=== PATIENT | male | born 1990 | race Caucasian/White ===

== ENCOUNTER 2018-11-21 03:54 | Emergency (ER) | payer SELFPAY ==
[~2018-11-21] VITALS: Ht 193 cm; Wt 72.7 kg
[2018-11-21 03:58] VITALS: TEMP 97.8
[2018-11-21 05:08] LABS: ALANINE AMINOTRANSFERASE 23 U/L (21-72); ALBUMIN 4.4 gm/dL (3.5-5.0); ALKALINE PHOSPHATASE 62 U/L (50-136); ANION GAP 11 mmol/L (7-16); AST,SGOT 27 U/L (15-37); BILIRUBIN,TOTAL 1.1 mg/dL (0.0-1.0); BLOOD UREA NITROGEN 14 mg/dL (9-20); CALCIUM 9.6 mg/dL (8.4-10.2); CARBON DIOXIDE 25 mmol/L (22-30); CHLORIDE 103 mmol/L (98-107); CREATININE, serum 0.66 (0.66-1.25); GLUCOSE 94 mg/dL (74-106); LIPASE 61 U/L (23-300); POTASSIUM 4.2 mmol/L (3.4-5.0); SODIUM 140 mmol/L (137-145); TOTAL PROTEIN 7.5 gm/dL (6.4-8.2)
[2018-11-21 05:21] LABS: TROPONIN-I < 0.012 ng/mL (0.000-0.035)
[2018-11-21 05:31] LABS: BASO % 0.5 % (0.0-2.0); EOS # 0.1 (0.0-0.7); EOS % 0.9 % (0-4.0); GRAN # 6.1 (1.4-6.5); GRAN % 71.4 % (42.2-75.2); HEMATOCRIT 40.6 % (42.0-52.0); HEMOGLOBIN 14.1 g/dl (13.5-18.0); LYMPH # 1.7 (1.2-3.4); LYMPH % 19.9 % (20.0-51.0); MEAN CELL VOLUME 88 fl (80.0-100.0); MEAN CORPUSCULAR HEMOGLOBIN 30 pg (27.0-31.0); MEAN CORPUSCULAR HGB CONC 35 g/dl (33.0-37.0); MEAN PLATELET VOLUME 8.3 fl (7.4-10.4); MONO # 0.6 (0.1-0.6); MONO % 7.1 % (1.7-9.3); PLATELET COUNT 170 K/mm3 (130-400); RED BLOOD COUNT 4.64 M/mm3 (4.20-5.60); REDCELL DISTRIBUTION WIDTH-CV 11.7 % (11.5-14.5)
[2018-11-21 05:53] LABS: D-DIMER < 200.00 ng/mLDDu (200-230); INR 1.3 (0.8-3.0); PROTHROMBIN TIME 14.7 SECONDS (9.7-12.8)
[2018-11-21 06:31] VITALS: BP 123/79; PULSE 81
[2018-11-22] MEDS ORDERED: ATARAX 25MG25 MG/TAB PO (23:36)
== END 2018-11-21 06:40 | disposition home or self-care (01) ==
LOC: COL.ER 03:54
PROVIDERS: Emergency Medicine
DX: R07.89 Other chest pain (principal)
CPT/HCPCS: J7030

== ENCOUNTER 2018-11-22 22:31 | Emergency (ER) | payer SELFPAY ==
[~2018-11-22] VITALS: Ht 190.5 cm; Wt 68.2 kg
[2018-11-22 22:39] VITALS: BP 133/83; TEMP 98
[2018-11-22] MEDS ORDERED: ATARAX 25MG25 MG/TAB PO (23:36)
[2018-11-22 23:45] VITALS: PULSE 72
== END 2018-11-22 23:45 | disposition home or self-care (01) ==
LOC: COL.ER 22:31
DX: M94.0 Chondrocostal junction syndrome [Tietze] (principal); K21.9 Gastro-esophageal reflux disease without esophagitis
CPT/HCPCS: J1885